=== PATIENT | female | born 1975 | race American Indian/Alaskan Native ===

== ENCOUNTER 2016-05-23 08:51 | Outpatient (CLI) | payer OTHER ==
--- NOTE | 2016-05-23 10:09 | Mammography Report ---
RIGHT DIGITAL DIAGNOSTIC MAMMOGRAM : 05/23/16 08:51:00 CLINICAL: Post aspiration of a 2.8 cm cyst at 9 o'clock. COMPARISON:05/05/16 mammogram from [facility], [place], [place] FINDINGS: The previously described circumscribed mass is no longer identified.No mass, architectural distortion or suspicious calcifications. IMPRESSION: Negative mammogram status post cyst aspiration. BI-RADS CATEGORY: 1 - - Negative RECOMMENDATION: Routine mammographic screening. ACR BI-RADS MAMMOGRAPHIC CODES: 0 = Needs additional imaging evaluation; 1 = Negative; 2 = Benign; 3 = Probably benign; 4 = Suspicious; 5 = Malignant; 6 = Known biopsy-proven malignancy COMMENT: 1. Dense breast tissue, i.e., adenosis, fibrocystic changes, etc., may obscure an underlying neoplasm. 2. Approximately 10% of cancers are not detected with mammography. 3. A negative mammography report should not delay biopsy if a clinically suspicious mass is present. COMMENT: Patient follow-up letters are generated by our [employer] application.
--- NOTE | 2016-05-23 10:23 | Ultrasound Report ---
ULTRASOUND GUIDED ASPIRATION RIGHT BREAST: 05/23/16 CLINICAL: 2.8 cm right breast cyst at 9 o'clock. COMPARISON: [facility] 05/05/16 FINDINGS: The procedure was explained to the patient and informed consent was obtained. Ultrasound demonstrated the previously described cyst with low-level internal echoes at 9 o'clock 4 cm from the nipple. The cyst was tender to palpation. The skin was cleansed with Betadine and anesthetized with 1% lidocaine. A 20-gauge needle was introduced into the cyst with ultrasound guidance. 10cc of cloudy yellowish fluidwas removed. The fluid was discarded and a specimen was sent to the lab. The patient tolerated the procedure well and there were no apparent complications. A two-view mammogram show resolution of the previously described circumscribed mass at 9 o'clock. IMPRESSION: Uncomplicated cyst aspiration right breast.
== END 2016-05-23 08:52 | disposition home or self-care (01) ==
LOC: SPVWC 08:51
PROVIDERS: ATTEND Nurse Practitioner
DX: N60.01 Solitary cyst of right breast (principal)
CPT/HCPCS: 19000; G0206